=== PATIENT | female | born 1960 | race Caucasian/White ===

== ENCOUNTER 2017-06-15 11:06 | Outpatient (CLI) | payer OTHER ==
--- NOTE | 2017-06-15 11:42 | MMO ---
BILATERAL SCREENING MAMMOGRAM: DATE: 06/15/17 HISTORY: 56-year-old female for screening mammography. COMPARISON: 11/18/14, 10/30/13. FINDINGS: Bilateral MLO and CC views of the breasts show scattered fibroglandular breast tissue. Benign-appear ing calcifications are seen in both breasts. There is no evidence of suspicious mass, suspicious clu ster of microcalcifications, or area of architectural distortion. Interpretation of this mammogram was performed with the assistance of computer-aided detection. IMPRESSION: BIRADS 2: Benign Finding(s) Annual screening mammography is recommended. POS: [facility]
== END 2017-06-15 11:07 | disposition home or self-care (01) ==
LOC: MAMMO 11:06
PROVIDERS: ATTEND Obstetrics & Gynecology
DX: Z12.31 Encounter for screening mammogram for malignant neoplasm of breast (principal)
CPT/HCPCS: 77067; G0202

== ENCOUNTER 2018-10-22 10:56 | Outpatient (CLI) | payer OTHER | END 2018-10-22 10:57 | disposition home or self-care (01) | LOC: BICMAMMO 10:56 | PROVIDERS: ATTEND Obstetrics & Gynecology | DX: Z12.31 Encounter for screening mammogram for malignant neoplasm of breast (principal); R92.1 Mammographic calcification found on diagnostic imaging of breast | CPT/HCPCS: 77063; 77067 ==